=== PATIENT | female | born 1940 | race Caucasian/White ===

== ENCOUNTER → 2017-11-27 | Outpatient (CLI) | payer MEDICARE, OTHER ==
--- NOTE | 2017-11-27 10:10 | RADIOLOGY REPORT (SQ) ---
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 Coronal T2/ HASTE imaging. LIMITATIONS: None. FINDINGS: VISUALIZED UPPER ABDOMEN: Limited evaluation. No acute or suspicious findings suggested. SEGMENTATION: No transitional anatomy. The lowest well-developed disc space is labeled L5-S1. ALIGNMENT: Convex rightward upper lumbar curvature VERTEBRAE: Intact. BONE MARROW: Normal. No marrow replacement or reactive changes. DISC SIGNAL: Diffuse decreased T2 weighted intervertebral disc signal POSTERIOR ELEMENTS: Generally intact. No pars defect evident. HARDWARE: None in the spine. CORD AND CONUS: Normal in size and signal intensity. Conus at the L1 level. SOFT TISSUES: No aortic aneurysm seen. No bulky retroperitoneal adenopathy or mass. No paraspinal mas s or fluid. T10-11: At the upper edge of the field of view. Borderline central canal narrowing results from bro ad diffuse disc bulge and moderate bilateral facet hypertrophy. No significant foraminal narrowing. T11-12: Borderline central canal narrowing results broad diffuse disc bulge and moderate bilateral f acet hypertrophy. No significant foraminal narrowing. T12-L1: Mild central canal stenosis results from broad diffuse posterior disc bulge and bony spurrin g and bulky bilateral facet hypertrophy. Mild bilateral foraminal narrowing is present. L1-L2: Broad diffuse posterior disc bulging is present left greater than right with left foraminal an d lateral bulge and bony spurring. This finding along with moderate bilateral facet and ligament hyp ertrophy causes moderate to high-grade left foraminal narrowing. No central stenosis or significant right foraminal narrowing. L2-L3: Broad diffuse posterior disc bulging is present with bilateral foraminal disc bulge and bony s purring. This finding along with bulky bilateral facet and ligament hypertrophy causes mild to moder ate central canal stenosis best shown on axial T2 image 11. There is partial effacement of the CSF a round the lumbar nerve roots. Moderate to high-grade bilateral foraminal narrowing at L2-3. L3-L4: Broad diffuse posterior disc bulge and bony spurring and bulky bilateral facet and ligament hy pertrophy. Kmog-kn-vywiwtfj central canal narrowing with partial effacement of the CSF around the rito mbar nerve roots, best shown on axial T2 image 16. High-grade right and moderate left foraminal narr owing is present. L4-L5: Broad diffuse posterior disc bulge and bony spurring and bulky bilateral facet and ligament hy pertrophy causes mild central canal narrowing. There is high-grade right and mild left foraminal lorin rowing. L5-S1: Broad diffuse posterior disc bulge and bony spurring and bulky bilateral facet and ligament hy pertrophy cause mild central canal narrowing. There is high-grade right and moderate to high-grade l eft foraminal narrowing. SACRUM: Visualized upper sacrum intact. OTHER: No other significant findings. IMPRESSION: Diffuse degenerative changes with multilevel significant central and foraminal stenosis TECHNICAL DOCUMENTATION: JOB ID: [id number] [employer]- All Rights Reserved Reading location - IP/workstation name: [email or web address]
== END ==
LOC: RAD 08:30
PROVIDERS: ATTEND Physician Assistant
DX: M48.062 Spinal stenosis, lumbar region with neurogenic claudication (principal); M51.37 Other intervertebral disc degeneration, lumbosacral region
CPT/HCPCS: 72148

== ENCOUNTER → 2018-01-14 | Outpatient (CLI) | payer MEDICARE, OTHER ==
--- NOTE | 2018-01-14 12:28 | RADIOLOGY REPORT (SQ) ---
EXAM DESCRIPTION: SACRUM AND COCCYX COMPLETED DATE/TIME: 01/14/2018 12:07 pm REASON FOR STUDY: LBP M54.5 LOW BACK PAIN COMPARISON: MRI lumbar spine 11/27/2017 Bilateral hips films 01/14/2018 NUMBER OF VIEWS: Three views. TECHNIQUE: AP, lateral, and tilt views of the sacrum and coccyx. LIMITATIONS: None. FINDINGS: MINERALIZATION: Normal. BONES: No acute fracture or dislocation. No worrisome bone lesions. SOFT TISSUES: No soft tissue swelling. No foreign body. OTHER: Disc space loss of height at L3-4, L4-5, and L5-S1. Left hip replacement the edge of the fiel d of view IMPRESSION: NEGATIVE STUDY OF THE SACRUM AND COCCYX. TECHNICAL DOCUMENTATION: JOB ID: [id number] [employer]- All Rights Reserved Reading location - IP/workstation name: [email or web address]
--- NOTE | 2018-01-14 12:30 | RADIOLOGY REPORT (SQ) ---
EXAM DESCRIPTION: HIPS BILATERAL COMPLETED DATE/TIME: 01/14/2018 12:07 pm REASON FOR STUDY: LBP M54.5 LOW BACK PAIN COMPARISON: Sacrum and coccyx same date MRI lumbar spine 11/27/2017 NUMBER OF VIEWS: Two views TECHNIQUE: AP pelvis and additional frog-leg view of both hips. LIMITATIONS: None. FINDINGS: MINERALIZATION: Normal for age HIPS: No acute fracture or dislocation. No worrisome bone lesions. Left total hip replacement with a cetabular component anchored with a single screw. No lucency around the hardware worrisome for loose justin PELVIS AND SACRUM: No acute fracture or dislocation. No worrisome bone lesions. PUBIS AND ISCHIUM: No acute fracture. LOWER LUMBAR SPINE: Advanced degenerative disc changes at L4-5 and L5-S1 SOFT TISSUES: No findings. OTHER: No other significant finding. IMPRESSION: No acute findings TECHNICAL DOCUMENTATION: JOB ID: [id number] [employer]- All Rights Reserved Reading location - IP/workstation name: [email or web address]
== END ==
LOC: OD 11:43
PROVIDERS: ATTEND Physician Assistant
DX: M54.5 Low back pain (principal); M51.36 Other intervertebral disc degeneration, lumbar region
CPT/HCPCS: 72220; 73522

== ENCOUNTER → 2018-02-25 | Day surgery (SDC) | payer MEDICARE, OTHER ==
--- NOTE | 2018-02-18 11:44 | RADIOLOGY REPORT (SQ) ---
EXAM DESCRIPTION: CHEST PA/LATERAL COMPLETED DATE/TIME: 02/18/2018 11:06 am REASON FOR STUDY: PRE-OP COMPARISON: None. EXAM PARAMETERS: NUMBER OF VIEWS: two views TECHNIQUE: Digital Frontal and Lateral radiographic views of the chest acquired. RADIATION DOSE: NA LIMITATIONS: none FINDINGS: LUNGS AND PLEURA: Areas of linear scarring scattered throughout both lungs. MEDIASTINUM AND HILAR STRUCTURES: No masses or contour abnormalities. HEART AND VASCULAR STRUCTURES: Heart normal size. No evidence for failure. BONES: No acute findings. HARDWARE: None in the chest. OTHER: No other significant finding. IMPRESSION: Areas of linear scarring throughout both lungs. No effusions or consolidation. TECHNICAL DOCUMENTATION: JOB ID: [id number] [employer]- All Rights Reserved Reading location - IP/workstation name: [email or web address]
[2018-02-18 12:01] LABS: HEMATOCRIT 33.6 % (36.0-47.0); HEMOGLOBIN 11.6 g/dL (12.0-15.5); MEAN CORPUSCULAR HEMOGLOBIN 34.2 pg (27.0-33.4); MEAN CORPUSCULAR HGB CONC 34.4 g/dL (32.0-36.0); MEAN CORPUSCULAR VOLUME 99 fl (80-97); PLATELET COUNT 393 10^3/uL (150-450); RED BLOOD COUNT 3.38 10^6/uL (3.72-5.28); WHITE BLOOD COUNT 10.8 10^3/uL (4.0-10.5)
[2018-02-18 12:32] LABS: ANION GAP 9 (5-19); BLOOD UREA NITROGEN 22 mg/dL (7-20); CALCIUM 9.2 mg/dL (8.4-10.2); CARBON DIOXIDE 25 mmol/L (22-30); CHLORIDE 104 mmol/L (98-107); GLUCOSE 98 mg/dL (75-110); POTASSIUM 4.7 mmol/L (3.6-5.0)
[2018-02-18 12:59] LABS: ABSOLUTE MONOCYTES # (MANUAL) 0.8 10^3/uL (0.1-1.4); ABSOLUTE NEUTROPHILS# (MANUAL) 6.5 10^3/uL (1.7-8.2); BAND NEUTROPHILS % (MANUAL) 1 % (3-5); BASOPHILS % (MANUAL) 0 % (0-2); EOSINOPHILS % (MANUAL) 5 % (0-6); LYMPHOCYTES % (MANUAL) 28 % (13-45); METAMYELOCYTES % (MANUAL) 1 % (0); MONOCYTES % (MANUAL) 7 % (3-13); PLATELET CLUMPS PRESENT; SEGMENTED NEUTROPHILS % (MAN) 58 % (42-78); TOTAL CELLS COUNTED 100; TOXIC GRANULATION SLIGHT
[2018-02-18 13:00] LABS: POLYCHROMASIA SLIGHT
--- NOTE | 2018-02-18 17:21 | EKG REPORT ---
SEVERITY:- ABNORMAL ECG - SINUS RHYTHM INCOMPLETE RBBB AND LAFB : Confirmed by: Trudy Daley MD 18-Feb-2018 17:20:04
[~2018-02-25] MED LIST: ACETAMINOPHEN 0 MG/0 ML RTUPB IV ONE; ALBUTEROL SULFATE 0.083% NEB 2.5 MG/3 ML AMPUL NEB ONE; BUPIVACAINE HCL 0.5%-EPI 1:200000 INJ/PF 30 ML VIAL ONE; CEFAZOLIN 1 GM/D5W RTU 1 GM/50 ML RTUPB IV ONE; CEFAZOLIN 1 GM/D5W RTU 1 GM/50 ML RTUPB IV PRN; FENTANYL CITRATE INJ/PF 100 MCG/2 ML AMPUL ONE; LACTATED RINGERS 1000 ML IV PRN; LIDOCAINE 0.5% INJ-PF (5 MG/ML) 50 ML SDV SUBCUT PRN; LIDOCAINE 1% INJ-PF (10 MG/ML) 30 ML SDV ONE; MIDAZOLAM 2 MG/2 ML INJ ONE; PROPOFOL INJ 200 MG/20 ML VIAL IV ONE; TRIAMCINOLONE ACETONIDE INJ 40 MG/1 ML VIAL ONE
[2018-02-25 11:25] LABS: APPEARANCE,URINE SLIGHTLY-CLOUDY; BILIRUBIN,URINE NEGATIVE (NEGATIVE); COLOR,URINE YELLOW; GLUCOSE, URINE NEGATIVE (NEGATIVE); KETONES,URINE NEGATIVE (NEGATIVE); LEUKOCYTE ESTERASE,URINE MODERATE (NEGATIVE); NITRITE,URINE NEGATIVE (NEGATIVE); PROTEIN,URINE NEGATIVE (NEGATIVE); URINE SPECIFIC GRAVITY 1.017; UROBILINOGEN,URINE NEGATIVE mg/dL (<2.0)
[2018-02-25 11:37] VITALS: BP 130/60
[2018-02-25 11:44] LABS: INTERNATIONAL RATION (INR) 0.93; PARTIAL THROMBOPLASTIN TIME 30.3 SEC (23.5-35.8); PROTHROMBIN TIME 12.9 SEC (11.4-15.4)
== END ==
LOC: OROUT 10:39
PROVIDERS: ATTEND Student in an Organized Health Care Education/Training Program
DX: M48.062 Spinal stenosis, lumbar region with neurogenic claudication (principal); Z79.01 Long term (current) use of anticoagulants; Z53.9 Procedure and treatment not carried out, unspecified reason; I45.2 Bifascicular block; Z01.818 Encounter for other preprocedural examination
CPT/HCPCS: 93005; 36415 ×2; 85025; 85610; 85730; 80048; 81001; 71046; 93010; J2250; J3490 ×2; J0690; J3010; J2704; A9270; J0131

== ENCOUNTER → 2018-03-20 | Outpatient (CLI) | payer MEDICARE, OTHER ==
[2018-03-20 11:24] LABS: ABSOLUTE EOSINOPHILS # (AUTO) 0.6 10^3/uL (0.0-0.6); ABSOLUTE LYMPHOCYTES (AUTO) 3.6 10^3/uL (0.5-4.7); ABSOLUTE MONOCYTES (AUTO) 0.8 10^3/uL (0.1-1.4); ABSOLUTE NEUT (AUTO) 6.7 10^3/uL (1.7-8.2); BASOPHILS % (AUTO) 0.4 % (0-2); EOSINOPHILS % (AUTO) 5.2 % (0-6); HEMATOCRIT 31.5 % (36.0-47.0); HEMOGLOBIN 10.9 g/dL (12.0-15.5); LYMPHOCYTES % (AUTO) 30.2 % (13-45); MEAN CORPUSCULAR HEMOGLOBIN 33.7 pg (27.0-33.4); MEAN CORPUSCULAR HGB CONC 34.5 g/dL (32.0-36.0); MEAN CORPUSCULAR VOLUME 98 fl (80-97); MONOCYTES % (AUTO) 7.2 % (3-13); PLATELET COUNT 369 10^3/uL (150-450); RED BLOOD COUNT 3.23 10^6/uL (3.72-5.28); RED CELL DISTRIBUTION WIDTH 12.5 % (11.5-14.0); TOTAL CELLS COUNTED % (AUTO) 100 %; WHITE BLOOD COUNT 11.8 10^3/uL (4.0-10.5)
[2018-03-20 11:40] LABS: PROTHROMBIN TIME 12.6 SEC (11.4-15.4)
[2018-03-20 11:41] LABS: PARTIAL THROMBOPLASTIN TIME 29.5 SEC (23.5-35.8)
[2018-03-20 12:28] LABS: APPEARANCE,URINE TURBID; BILIRUBIN,URINE NEGATIVE (NEGATIVE); GLUCOSE, URINE NEGATIVE (NEGATIVE); KETONES,URINE NEGATIVE (NEGATIVE); LEUKOCYTE ESTERASE,URINE LARGE (NEGATIVE); NITRITE,URINE NEGATIVE (NEGATIVE); PROTEIN,URINE 30 mg/dL (NEGATIVE); URINE SPECIFIC GRAVITY 1.011; UROBILINOGEN,URINE NEGATIVE mg/dL (<2.0)
[2018-03-20 12:29] LABS: COLOR,URINE YELLOW
== END ==
LOC: OD 10:29
PROVIDERS: ATTEND Pain Medicine Interventional Pain Medicine
DX: Z01.812 Encounter for preprocedural laboratory examination (principal); Z01.818 Encounter for other preprocedural examination; Z79.01 Long term (current) use of anticoagulants; M48.061 Spinal stenosis, lumbar region without neurogenic claudication
CPT/HCPCS: 36415; 81001; 85025; 85610; 85730

== ENCOUNTER → 2018-04-16 | Outpatient (CLI) | payer MEDICARE, OTHER ==
[2018-04-16 13:46] LABS: ABSOLUTE BASOPHILS # (AUTO) 0.1 10^3/uL (0.0-0.2); ABSOLUTE EOSINOPHILS # (AUTO) 0.7 10^3/uL (0.0-0.6); ABSOLUTE LYMPHOCYTES (AUTO) 3.2 10^3/uL (0.5-4.7); ABSOLUTE MONOCYTES (AUTO) 0.8 10^3/uL (0.1-1.4); ABSOLUTE NEUT (AUTO) 8.4 10^3/uL (1.7-8.2); BASOPHILS % (AUTO) 0.5 % (0-2); EOSINOPHILS % (AUTO) 5.1 % (0-6); HEMATOCRIT 33.3 % (36.0-47.0); HEMOGLOBIN 11.5 g/dL (12.0-15.5); LYMPHOCYTES % (AUTO) 24.1 % (13-45); MEAN CORPUSCULAR HEMOGLOBIN 33.4 pg (27.0-33.4); MEAN CORPUSCULAR HGB CONC 34.5 g/dL (32.0-36.0); MEAN CORPUSCULAR VOLUME 97 fl (80-97); MONOCYTES % (AUTO) 6.3 % (3-13); PLATELET COUNT 351 10^3/uL (150-450); RED BLOOD COUNT 3.44 10^6/uL (3.72-5.28); RED CELL DISTRIBUTION WIDTH 12.2 % (11.5-14.0); TOTAL CELLS COUNTED % (AUTO) 100 %; WHITE BLOOD COUNT 13.1 10^3/uL (4.0-10.5)
[2018-04-16 13:50] LABS: INTERNATIONAL RATION (INR) 0.95; PROTHROMBIN TIME 13.2 SEC (11.4-15.4)
[2018-04-16 13:51] LABS: PARTIAL THROMBOPLASTIN TIME 30.3 SEC (23.5-35.8)
== END ==
LOC: OD 12:26
PROVIDERS: ATTEND Student in an Organized Health Care Education/Training Program
DX: D68.9 Coagulation defect, unspecified (principal); N39.0 Urinary tract infection, site not specified
CPT/HCPCS: 36415; 85025; 85610; 85730

== ENCOUNTER 2018-04-24 09:25 | Day surgery (SDC) | payer MEDICARE, OTHER ==
[~2018-04-24 09:25] MED LIST changes: -ACETAMINOPHEN 0 MG/0 ML RTUPB IV ONE; -ALBUTEROL SULFATE 0.083% NEB 2.5 MG/3 ML AMPUL NEB ONE; -BUPIVACAINE HCL 0.5%-EPI 1:200000 INJ/PF 30 ML VIAL ONE; -CEFAZOLIN 1 GM/D5W RTU 1 GM/50 ML RTUPB IV ONE; -FENTANYL CITRATE INJ/PF 100 MCG/2 ML AMPUL ONE; -LACTATED RINGERS 1000 ML IV PRN; -LIDOCAINE 0.5% INJ-PF (5 MG/ML) 50 ML SDV SUBCUT PRN; -LIDOCAINE 1% INJ-PF (10 MG/ML) 30 ML SDV ONE; -MIDAZOLAM 2 MG/2 ML INJ ONE; -PROPOFOL INJ 200 MG/20 ML VIAL IV ONE; +RINGERS SOLUTION,LACTATED 1,000 ML IV PRN; -TRIAMCINOLONE ACETONIDE INJ 40 MG/1 ML VIAL ONE
[2018-04-24 10:41] LABS: APPEARANCE,URINE CLEAR; BILIRUBIN,URINE NEGATIVE (NEGATIVE); COLOR,URINE STRAW; GLUCOSE, URINE NEGATIVE (NEGATIVE); KETONES,URINE NEGATIVE (NEGATIVE); LEUKOCYTE ESTERASE,URINE SMALL (NEGATIVE); NITRITE,URINE NEGATIVE (NEGATIVE); PROTEIN,URINE NEGATIVE (NEGATIVE); URINE SPECIFIC GRAVITY 1.008; UROBILINOGEN,URINE NEGATIVE mg/dL (<2.0)
[2018-04-24] MEDS ORDERED: LIDOCAINE 1% INJ-PF (10 MG/ML) 30 ML SDV ONE (10:43)
[2018-04-24] MEDS ORDERED: TRIAMCINOLONE ACETONIDE INJ 40 MG/1 ML VIAL ONE (10:44)
[2018-04-24] MEDS ORDERED: BUPIVACAINE HCL 0.5%-EPI 1:200000 INJ/PF 30 ML VIAL ONE (10:44)
[2018-04-24 10:51] LABS: ABSOLUTE BASOPHILS # (AUTO) 0.1 10^3/uL (0.0-0.2); ABSOLUTE EOSINOPHILS # (AUTO) 0.4 10^3/uL (0.0-0.6); ABSOLUTE MONOCYTES (AUTO) 0.7 10^3/uL (0.1-1.4); ABSOLUTE NEUT (AUTO) 4.3 10^3/uL (1.7-8.2); BASOPHILS % (AUTO) 0.9 % (0-2); EOSINOPHILS % (AUTO) 5.2 % (0-6); HEMATOCRIT 30.5 % (36.0-47.0); HEMOGLOBIN 10.8 g/dL (12.0-15.5); LYMPHOCYTES % (AUTO) 35.2 % (13-45); MEAN CORPUSCULAR HEMOGLOBIN 33.5 pg (27.0-33.4); MEAN CORPUSCULAR HGB CONC 35.3 g/dL (32.0-36.0); MEAN CORPUSCULAR VOLUME 95 fl (80-97); MONOCYTES % (AUTO) 8.2 % (3-13); PLATELET COUNT 315 10^3/uL (150-450); RED BLOOD COUNT 3.21 10^6/uL (3.72-5.28); RED CELL DISTRIBUTION WIDTH 12.3 % (11.5-14.0); SEGMENTED NEUTROPHILS % (AUTO) 50.5 % (42-78); TOTAL CELLS COUNTED % (AUTO) 100 %; WHITE BLOOD COUNT 8.5 10^3/uL (4.0-10.5)
[2018-04-24 11:00] LABS: INTERNATIONAL RATION (INR) 0.98; PARTIAL THROMBOPLASTIN TIME 29.8 SEC (23.5-35.8); PROTHROMBIN TIME 13.4 SEC (11.4-15.4)
[2018-04-24 12:01] LABS: ANION GAP 8 (5-19); BLOOD UREA NITROGEN 24 mg/dL (7-20); CALCIUM 9.6 mg/dL (8.4-10.2); CARBON DIOXIDE 24 mmol/L (22-30); CHLORIDE 105 mmol/L (98-107); GLUCOSE 100 mg/dL (75-110); POTASSIUM 5.2 mmol/L (3.6-5.0); SODIUM 136.6 mmol/L (137-145)
[2018-04-24] MEDS ORDERED: CLINDAMYCIN 600 MG/D5W RTU 600 MG/50 ML RTUPB IV ONE (12:01)
[2018-04-24] MEDS ORDERED: FENTANYL CITRATE INJ/PF 100 MCG/2 ML AMPUL ONE (12:22)
[2018-04-24] MEDS ORDERED: PROMETHAZINE HCL INJ 25 MG/1 ML VIAL ONE (12:22)
[2018-04-24] MEDS ORDERED: MIDAZOLAM 2 MG/2 ML INJ ONE (12:22)
[2018-04-24] MEDS ORDERED: ONDANSETRON HCL INJ/PF 4 MG/2 ML SDV ONE (12:23)
[2018-04-24] MEDS ORDERED: EPHEDRINE SULFATE INJ 50 MG/1 ML AMPULE ONE (12:23)
[2018-04-24] MEDS ORDERED: ACETAMINOPHEN 1,000 MG/100 ML RTUPB IV ONE (12:23)
[2018-04-24] MEDS ORDERED: PROPOFOL INJ 200 MG/20 ML VIAL IV ONE (12:23)
[2018-04-24] MEDS ORDERED: OXYCODONE HCL IR 5 MG TABLET PO PRN (13:35)
--- NOTE | 2018-04-24 13:58 | OPERATIVE REPORT E ---
Operative Report NAME: EMBER LANDRUM : 1940 AGE: 77Y DATE OF SURGERY: 04/24/2018 ROOM: PREOPERATIVE DIAGNOSIS: Lumbar spinal stenosis and neurogenic claudication. POSTOPERATIVE DIAGNOSIS: Lumbar spinal stenosis and neurogenic claudication. PROCEDURE: MILD procedure at L3-4 with a steroid injection of 80 mg of Kenalog. SURGEON: ANTONETTE MO M.D. AIR BRAKE OPERATOR: None. ANESTHESIA: MAC. COMPLICATIONS: None. PROCEDURE: After obtaining informed consent and advising the patient of the risks and benefits, including serious neurological injury, bleeding, infection, paralysis, aggravation of pain, infection, , and allergic reaction, she was taken to the operating room and placed comfortably in the prone position. Monitors were applied per Anesthesia. She was assessed visually and verbally for comfort. She was then prepped with chlorhexidine followed by a sterile drape. Fluoroscopy was used to evaluate the spine. The L3-4 target space was identified. Using an epidural needle and *------* after anesthetizing with 1% lidocaine, we were able to enter using [id number] to the L3-L4 level. An epidurogram was performed with *------* and some limitation at the L3-4 level. The landmarks were identified and a suitable track was determined for placement of the MILD instrumentation. Beginning on the left side, a small incision was made after local anesthetic of 1% lidocaine was applied. This was repeated on the right side at the suspected data entry technician. The MILD instrumentation trocar was then advanced through the small incision down to the lamina of the L3-4 level on the left. Multiple x-ray views were taken particularly the oblique and AP to ensure satisfactory location in the midline as well as inferiorly and superiorly. A small amount of additional local anesthetic was instilled through the trocar. A bone rongeur was then utilized to remove the lamina and ligament at that level on the left and this appeared in the inferior regions. A tissue sculptor was then utilized to remove additional tissue. Improvement with the contrast spread was noted. The procedure was then repeated in the exact same manner on the right side as described above. Again, additional improvement with the contrast spread was noted. There was felt to be satisfactory opening of the epidural space at this level, resolving some of the spinal stenosis. Through the epidural needle, 80 mg of Kenalog was then inserted. All instrumentation was then removed. The region was cleaned. Steri-Strips were placed followed by sterile dressing. The patient was taken to the PACU for further postoperative care and monitoring and will follow up in our clinic. DICTATING PHYSICIAN: ANTONETTE MO M.D. [id number] PHY#: [id number] ID: [id number] JOB#: [id number] ACCT: [id number] cc:ANTONETTE MO M.D. >
[2018-04-24 16:18] VITALS: BP 111/41
--- NOTE | 2018-04-24 16:41 | RADIOLOGY REPORT (SQ) ---
EXAM DESCRIPTION: L SPINE 2 VIEWS; NO CHG FLUORO COMPLETED DATE/TIME: 04/24/2018 3:13 pm REASON FOR STUDY: MINIMALLY INVASIVE LUMBAR DECOMPRESSION ASST W/ FLUORO IN OR M48.062 SPINAL STENO SIS, LUMBAR REGION WITH NEUROGENIC KIM Z00.6 ENCNTR FOR EXAM FOR NRML CMPRSN AND CTRL IN CLNCL RSR C Z79.01 PENITENTIARY (CURRENT) USE OF ANTICOAGULANTS COMPARISON: MRI lumbar spine 11/27/2017 FLUOROSCOPY TIME: 3.6 minutes 18 series of digital images saved to PACS. TECHNIQUE: Intra-operative images acquired during surgical procedure to evaluate progress. NUMBER OF IMAGES: 18 series of digital images LIMITATIONS: None. FINDINGS: Intra procedural imaging and fluoro during lumbar decompressive procedure. Please see the operative report for further details IMPRESSION: Intra procedural imaging and fluoro COMMENT: Quality ID 145: Final reports for procedures using fluoroscopy that document radiation exp osure indices, or exposure time and number of fluorographic images (if radiation exposure indices are not available) Please consult full operative report of the attending physician for description of the procedure. TECHNICAL DOCUMENTATION: JOB ID: [id number] [employer]- All Rights Reserved Reading location - IP/workstation name: [email or web address]
--- NOTE | 2018-04-24 16:41 | RADIOLOGY REPORT (SQ) ---
EXAM DESCRIPTION: L SPINE 2 VIEWS; NO CHG FLUORO COMPLETED DATE/TIME: 04/24/2018 3:13 pm REASON FOR STUDY: MINIMALLY INVASIVE LUMBAR DECOMPRESSION ASST W/ FLUORO IN OR M48.062 SPINAL STENO SIS, LUMBAR REGION WITH NEUROGENIC KIM Z00.6 ENCNTR FOR EXAM FOR NRML CMPRSN AND CTRL IN CLNCL RSR C Z79.01 [facility] (CURRENT) USE OF ANTICOAGULANTS COMPARISON: MRI lumbar spine 11/27/2017 FLUOROSCOPY TIME: 3.6 minutes 18 series of digital images saved to PACS. TECHNIQUE: Intra-operative images acquired during surgical procedure to evaluate progress. NUMBER OF IMAGES: 18 series of digital images LIMITATIONS: None. FINDINGS: Intra procedural imaging and fluoro during lumbar decompressive procedure. Please see the operative report for further details IMPRESSION: Intra procedural imaging and fluoro COMMENT: Quality ID 145: Final reports for procedures using fluoroscopy that document radiation exp osure indices, or exposure time and number of fluorographic images (if radiation exposure indices are not available) Please consult full operative report of the attending physician for description of the procedure. TECHNICAL DOCUMENTATION: JOB ID: [id number] [employer]- All Rights Reserved Reading location - IP/workstation name: [email or web address]
== END 2018-04-24 16:00 | disposition home or self-care (01) ==
LOC: OROUT 09:25
PROVIDERS: ATTEND Student in an Organized Health Care Education/Training Program
DX: M48.062 Spinal stenosis, lumbar region with neurogenic claudication (principal); Z00.6 Encounter for examination for normal comparison and control in clinical research program; M47.897 Other spondylosis, lumbosacral region; M48.07 Spinal stenosis, lumbosacral region; M51.37 Other intervertebral disc degeneration, lumbosacral region; M54.5 Low back pain; M47.896 Other spondylosis, lumbar region; G89.4 Chronic pain syndrome; E78.00 Pure hypercholesterolemia, unspecified; I10 Essential (primary) hypertension; R01.1 Cardiac murmur, unspecified; J45.909 Unspecified asthma, uncomplicated; D64.9 Anemia, unspecified; Z79.891 Long term (current) use of opiate analgesic; Z79.51 Long term (current) use of inhaled steroids; Z79.899 Other long term (current) drug therapy
CPT/HCPCS: 0275T; 36415; 85025; 85610; 85730; 80048; 81001; 72100; C1889; Q9966; J2250; J3490 ×3; J3010; J2405; J2704; J0131; 630; J2550